=== PATIENT | female | born 1950 | race Hispanic/Latino ===

== ENCOUNTER 2023-01-24 10:23 | Emergency (ER) | payer OTHER ==
[~2023-01-24] VITALS: Ht 160 cm; Wt 78.9 kg
[2023-01-24] MEDS ORDERED: MORPHINE 4 MG SYG IM ONE (11:00)
[2023-01-24 12:56] VITALS: BP 122/62; PULSE 77; RESP 16; O2SAT 96
== END 2023-01-24 12:57 | disposition home or self-care (01) ==
LOC: EDH 10:23
DX: S73.192A Other sprain of left hip, initial encounter (principal); S70.12XA Contusion of left thigh, initial encounter; E78.00 Pure hypercholesterolemia, unspecified; Z98.890 Other specified postprocedural states; W18.39XA Other fall on same level, initial encounter; Y93.89 Activity, other specified; Y92.89 Other specified places as the place of occurrence of the external cause; Y99.8 Other external cause status
CPT/HCPCS: 99283; 73502; 96372; J2270